=== PATIENT | female | born 1935 | race Caucasian/White ===

== ENCOUNTER 2016-12-19 18:42 | Inpatient (IN) | payer MEDICARE ==
[~2016-12-19] VITALS: Ht 157.4 cm; Wt 53.1 kg
[~2016-12-19 18:42] MED LIST: ACETAZOLAMIDE250 MG PO; B12,B-12,B 12500 MC1 PO; CALCIUM500 MG PO; CARDIZEM CD240 MG PO; COUMADIN3 M1 PO; COUMADIN4 M2 PO; Coumadin2 MG PO; FUROSEMIDE20 M1 PO; FUROSEMIDE40 MG PO; K-Dur 20MEQ20 MEQ PO; KLOR-CON M2020 ME1 PO; LACTINEX 0.2 MG1 TAB PO; LANOXIN0.125 MG PO; LASIX20 MG PO; LISINOPRIL10 M1 PO; LISINOPRIL10 MG PO; LOPRESSOR25 MG PO; LOPRESSOR50 M1 PO; LOPRESSOR50 MG PO; MAGNESIUM OXID400 MG PO; METOPROLOL SUCC50 M1 PO; METRONIDAZOLE500 MG PO; MICRO-K10 MEQ PO; MUCINEX600 MG PO; VITAMIN D5000 UNIT PO; XOPENEX0.63 MG NEB; ZITHROMAX250 MG PO; Zestril,Prinivil5 MG PO
[2016-12-19 18:53] VITALS: BP 162/81
[2016-12-19] MEDS ORDERED: ELIQUIS2.5 M1 PO (18:58)
[2016-12-19] MEDS ORDERED: LISINOPRIL5 MG PO (18:59)
[2016-12-19 19:23] LABS: BASO % 0.5 % (0.0-1.0); EOS # 0.1 10*3/uL (0.0-0.4); EOS % 1.7 % (1.0-4.0); HEMATOCRIT 40.6 % (37.0-47.0); HEMOGLOBIN 13.4 g/dl (12.0-16.0); LYMPH # 2.4 10*3/uL (1.3-4.4); MEAN PLATELET VOLUME 10.5 fl (9.6-12.3); MONO # 0.6 10*3/uL (0.1-1.0); NEUT # 3.2 10*3/uL (2.3-7.9); NEUT % 49.5 % (47.0-73.0); PLATELET COUNT AUTOMATED 210 10*3/uL (130-400); RED BLOOD COUNT 4.32 10*6/uL (4.10-5.10); WHITE BLOOD COUNT 6.4 10*3/uL (4.8-10.8)
[2016-12-19 19:40] LABS: ALKALINE PHOSPHATASE 106 U/L (45-117); BILIRUBIN, TOTAL 0.4 mg/dl (0.2-1.0); BUN 25 mg/dl (7-24); CARBON DIOXIDE 29 mmol/L (21-32); CHLORIDE 100 mmol/L (98-107); EST GLOM FILT AFRICAN AMERICAN > 60 ml/min; GLUCOSE 115 mg/dL (65-99); SGOT/AST 21 IU/L (3-35); SGPT/ALT 20 U/L (12-78); SODIUM 140 mmol/L (136-145); TOTAL PROTEIN 7.4 gm/dL (6.4-8.2)
[2016-12-19 20:59] VITALS: BP 166/92
[2016-12-20] VITALS: BP 158/69
[2016-12-20 00:44] LABS: CKMB 2.2 ng/ml (0.5-3.6); TROPONIN I 0.016 ng/ml (<0.045)
[2016-12-20 01:57] VITALS: BP 158/69
[2016-12-20 07:03] LABS: BASO % 0.6 % (0.0-1.0); EOS # 0.1 10*3/uL (0.0-0.4); EOS % 1.4 % (1.0-4.0); HEMATOCRIT 38.9 % (37.0-47.0); HEMOGLOBIN 12.6 g/dl (12.0-16.0); LYMPH # 1.8 10*3/uL (1.3-4.4); LYMPH % 28.6 % (27.0-41.0); MEAN CELL VOLUME 95.1 fl (81.0-99.0); MEAN CORPUSCULAR HGB 30.8 pg (27.0-31.0); MEAN CORPUSCULAR HGB CONC 32.4 g/dl (33.0-37.0); MEAN PLATELET VOLUME 10.5 fl (9.6-12.3); MONO # 0.7 10*3/uL (0.1-1.0); MONO % 11.3 % (3.0-9.0); NEUT # 3.7 10*3/uL (2.3-7.9); NEUT % 57.8 % (47.0-73.0); PLATELET COUNT AUTOMATED 193 10*3/uL (130-400); RED BLOOD COUNT 4.09 10*6/uL (4.10-5.10); RED CELL DISTRI WIDTH 12.9 % (0-14.5); WHITE BLOOD COUNT 6.4 10*3/uL (4.8-10.8)
[2016-12-20 07:34] LABS: PROTHROMBIN TIME 11.1 SECONDS (9.0-12.4)
[2016-12-20 07:35] LABS: ALBUMIN 3.7 gm/dl (3.1-4.5); BUN 19 mg/dl (7-24); CARBON DIOXIDE 28 mmol/L (21-32); CHLORIDE 105 mmol/L (98-107); GLUCOSE 84 mg/dL (65-99); MAGNESIUM 1.8 mg/dL (1.5-2.1); POTASSIUM 3.7 mmol/L (3.5-5.1); SODIUM 143 mmol/L (136-145)
[2016-12-20 07:43] LABS: ALKALINE PHOSPHATASE 95 U/L (45-117); BILIRUBIN, TOTAL 0.6 mg/dl (0.2-1.0); CHOLESTEROL 113 mg/dL (<200); EST GLOM FILT AFRICAN AMERICAN > 60 ml/min; HDL CHOLESTEROL 55 mg/dl (40-60); LDL CHOLESTEROL 47 mg/dL (9-159); PHOSPHOROUS 3.1 mg/dL (2.5-4.9); SGOT/AST 20 IU/L (3-35); SGPT/ALT 19 U/L (12-78); TRIGLYCERIDES 55 mg/dl (<150); VLDL CHOLESTEROL 11 mg/dL (6-40)
[2016-12-20 07:53] LABS: HEMOGLOBIN A1c 5.7 % (4.8-5.6)
[2016-12-20 08:00] VITALS: BP 141/83
[2016-12-20 08:28] LABS: VITAMIN D, 25-HYDROXY 46.7 ng/mL (30-100)
[2016-12-20 08:29] LABS: FOLIC ACID 19.29 ng/mL (>5.38)
[2016-12-20 12:00] VITALS: BP 138/68
== END 2016-12-20 14:43 | disposition home or self-care (01) | DRG 605 ==
LOC: ED 18:42 → EDHOLD 20:47 → 4E 21:26
PROVIDERS: Hospitalist; Registered Nurse
DX: S00.03XA Contusion of scalp, initial encounter (principal); I49.5 Sick sinus syndrome; I48.2 Chronic atrial fibrillation; I10 Essential (primary) hypertension; D64.9 Anemia, unspecified; E55.9 Vitamin D deficiency, unspecified; E53.8 Deficiency of other specified B group vitamins; I34.0 Nonrheumatic mitral (valve) insufficiency; W01.0XXA Fall on same level from slipping, tripping and stumbling without subsequent striking against object, initial encounter; Y93.89 Activity, other specified; Y92.89 Other specified places as the place of occurrence of the external cause; Y99.8 Other external cause status; Z88.6 Allergy status to analgesic agent; Z90.710 Acquired absence of both cervix and uterus; Z83.6 Family history of other diseases of the respiratory system

== ENCOUNTER → 2017-02-16 | Outpatient (CLI) | payer MEDICARE ==
[~2017-02-16] MED LIST changes: +ELIQUIS2.5 M1 PO; +LISINOPRIL5 MG PO
[2017-02-16 10:49] LABS: BASO # 0.1 10*3/uL (0.0-0.1); BASO % 0.7 % (0.0-1.0); EOS # 0.2 10*3/uL (0.0-0.4); EOS % 2.4 % (1.0-4.0); HEMATOCRIT 38.6 % (37.0-47.0); HEMOGLOBIN 12.5 g/dl (12.0-16.0); LYMPH # 2.1 10*3/uL (1.3-4.4); LYMPH % 29.8 % (27.0-41.0); MEAN CELL VOLUME 96.3 fl (81.0-99.0); MEAN CORPUSCULAR HGB 31.2 pg (27.0-31.0); MEAN CORPUSCULAR HGB CONC 32.4 g/dl (33.0-37.0); MEAN PLATELET VOLUME 10.6 fl (9.6-12.3); MONO # 0.7 10*3/uL (0.1-1.0); NEUT % 56.8 % (47.0-73.0); PLATELET COUNT AUTOMATED 207 10*3/uL (130-400); RED BLOOD COUNT 4.01 10*6/uL (4.10-5.10); RED CELL DISTRI WIDTH 13.4 % (0-14.5); WHITE BLOOD COUNT 7.1 10*3/uL (4.8-10.8)
[2017-02-16 11:20] LABS: ALBUMIN 3.8 gm/dl (3.1-4.5); ALKALINE PHOSPHATASE 114 U/L (45-117); BILIRUBIN, TOTAL 0.4 mg/dl (0.2-1.0); BUN 25 mg/dl (7-24); CARBON DIOXIDE 27 mmol/L (21-32); CHLORIDE 109 mmol/L (98-107); EST GLOM FILT AFRICAN AMERICAN > 60 ml/min; GLUCOSE 63 mg/dL (65-99); POTASSIUM 3.7 mmol/L (3.5-5.1); SGOT/AST 20 IU/L (3-35); SGPT/ALT 13 U/L (12-78); SODIUM 143 mmol/L (136-145); TOTAL PROTEIN 7.2 gm/dL (6.4-8.2)
== END | disposition home or self-care (01) ==
LOC: LAB 10:11
PROVIDERS: Internal Medicine
DX: I48.2 Chronic atrial fibrillation (principal)

== ENCOUNTER 2017-04-17 01:49 | Emergency (ER) | payer MEDICARE ==
[~2017-04-17] VITALS: Ht 154.9 cm; Wt 53.5 kg
[2017-04-17 02:15] LABS: BASO # 0.1 10*3/uL (0.0-0.1); BASO % 0.5 % (0.0-1.0); EOS # 0.2 10*3/uL (0.0-0.4); EOS % 1.1 % (1.0-4.0); HEMATOCRIT 38.3 % (37.0-47.0); HEMOGLOBIN 12.1 g/dl (12.0-16.0); IG # 0.1 10*3/uL (0.0-0.1); LYMPH # 4.6 10*3/uL (1.3-4.4); LYMPH % 32.1 % (27.0-41.0); MEAN CELL VOLUME 98.7 fl (81.0-99.0); MEAN CORPUSCULAR HGB 31.2 pg (27.0-31.0); MEAN CORPUSCULAR HGB CONC 31.6 g/dl (33.0-37.0); MEAN PLATELET VOLUME 10.6 fl (9.6-12.3); MONO # 0.8 10*3/uL (0.1-1.0); MONO % 5.6 % (3.0-9.0); NEUT # 8.5 10*3/uL (2.3-7.9); NEUT % 59.9 % (47.0-73.0); PLATELET COUNT AUTOMATED 216 10*3/uL (130-400); RED BLOOD COUNT 3.88 10*6/uL (4.10-5.10); RED CELL DISTRI WIDTH 13.4 % (0-14.5); WHITE BLOOD COUNT 14.2 10*3/uL (4.8-10.8)
[2017-04-17 02:26] LABS: INTERNATIONAL NORM RATIO 1.1 (2.0-3.5); PROTHROMBIN TIME 11.9 SECONDS (9.0-12.4)
[2017-04-17 02:32] LABS: ALBUMIN 3.5 gm/dl (3.1-4.5); ALKALINE PHOSPHATASE 106 U/L (45-117); BILIRUBIN, TOTAL 0.5 mg/dl (0.2-1.0); BUN 18 mg/dl (7-24); CARBON DIOXIDE 22 mmol/L (21-32); CHLORIDE 108 mmol/L (98-107); EST GLOM FILT AFRICAN AMERICAN > 60 ml/min; GLUCOSE 318 mg/dL (65-99); MAGNESIUM 1.8 mg/dL (1.5-2.1); POTASSIUM 3.8 mmol/L (3.5-5.1); SGOT/AST 92 IU/L (3-35); SGPT/ALT 53 U/L (12-78); SODIUM 143 mmol/L (136-145); TOTAL PROTEIN 6.8 gm/dL (6.4-8.2)
[2017-04-17 02:33] LABS: C-REACTIVE PROTEIN < 0.29 MG/DL (0-0.3)
[2017-04-17 02:34] LABS: TROPONIN I 0.129 ng/ml (<0.045)
[2017-04-17 02:55] VITALS: BP 106/81
[2017-04-17 04:12] LABS: LA>2 REFLEX 2 HR DRAW NOW
== END 2017-04-17 04:09 | disposition short-term general hospital (02) ==
LOC: ED 01:49
PROVIDERS: Student in an Organized Health Care Education/Training Program
DX: I21.3 ST elevation (STEMI) myocardial infarction of unspecified site (principal); I10 Essential (primary) hypertension; I48.91 Unspecified atrial fibrillation; Z88.6 Allergy status to analgesic agent

== ENCOUNTER 2017-04-19 21:58 | Inpatient (IN) | payer MEDICARE ==
[~2017-04-19] VITALS: Ht 154.9 cm; Wt 57.8 kg
[2017-04-19 21:58] VITALS: BP 124/64
[2017-04-19 22:10] VITALS: BP 128/62
[2017-04-19 22:40] VITALS: BP 105/65
[2017-04-19 22:57] LABS: BASO % 0.1 % (0.0-1.0); EOS % 0.1 % (1.0-4.0); HEMATOCRIT 33.7 % (37.0-47.0); HEMOGLOBIN 10.8 g/dl (12.0-16.0); IG # 0.1 10*3/uL (0.0-0.1); LYMPH # 1.3 10*3/uL (1.3-4.4); LYMPH % 10.9 % (27.0-41.0); MEAN CELL VOLUME 97.4 fl (81.0-99.0); MEAN CORPUSCULAR HGB 31.2 pg (27.0-31.0); MEAN PLATELET VOLUME 11.2 fl (9.6-12.3); MONO # 0.7 10*3/uL (0.1-1.0); MONO % 5.9 % (3.0-9.0); NEUT % 82.5 % (47.0-73.0); NUCLEATED RED BLOOD CELL 0.1 10*3/uL (0.0-0.0); NUCLEATED RED BLOOD CELL 0.8 % (0.0-0.0); PLATELET COUNT AUTOMATED 167 10*3/uL (130-400); RED BLOOD COUNT 3.46 10*6/uL (4.10-5.10); RED CELL DISTRI WIDTH 13.9 % (0-14.5); WHITE BLOOD COUNT 12.1 10*3/uL (4.8-10.8)
[2017-04-19 23:00] VITALS: BP 108/69
[2017-04-19 23:13] LABS: ALBUMIN 3.5 gm/dl (3.1-4.5); ALKALINE PHOSPHATASE 82 U/L (45-117); BILIRUBIN, TOTAL 0.4 mg/dl (0.2-1.0); BUN 56 mg/dl (7-24); CARBON DIOXIDE 25 mmol/L (21-32); CHLORIDE 107 mmol/L (98-107); EST GLOM FILT AFRICAN AMERICAN > 60 ml/min; GLUCOSE 144 mg/dL (65-99); SGOT/AST 67 IU/L (3-35); SGPT/ALT 107 U/L (12-78); SODIUM 143 mmol/L (136-145); TOTAL PROTEIN 6.9 gm/dL (6.4-8.2)
[2017-04-19 23:16] LABS: CKMB 5.6 ng/ml (0.5-3.6)
[2017-04-19 23:17] LABS: TROPONIN I 0.467 ng/ml (<0.045)
[2017-04-19 23:20] VITALS: BP 108/61
[2017-04-19 23:30] VITALS: BP 98/56
[2017-04-20] VITALS (8 sets, daily range): BP systolic 93–138; BP diastolic 60–96
[2017-04-20] MEDS ORDERED: ASPIR 8181 MG PO (02:08)
[2017-04-20] MEDS ORDERED: B-12 DOTS500 MCG PO (02:11)
[2017-04-20] MEDS ORDERED: COREG3.125 MG PO (02:12)
[2017-04-20] MEDS ORDERED: LISINOPRIL2.5 MG PO (02:13)
[2017-04-20] MEDS ORDERED: LASIX20 MG PO (02:13)
[2017-04-20 06:19] LABS: BASO % 0.1 % (0.0-1.0); EOS % 0.3 % (1.0-4.0); HEMATOCRIT 32.4 % (37.0-47.0); HEMOGLOBIN 10.3 g/dl (12.0-16.0); IG # 0.1 10*3/uL (0.0-0.1); LYMPH # 1.8 10*3/uL (1.3-4.4); LYMPH % 16.7 % (27.0-41.0); MEAN CELL VOLUME 97.6 fl (81.0-99.0); MEAN CORPUSCULAR HGB CONC 31.8 g/dl (33.0-37.0); MEAN PLATELET VOLUME 11.3 fl (9.6-12.3); MONO # 0.8 10*3/uL (0.1-1.0); MONO % 7.3 % (3.0-9.0); NEUT # 8.1 10*3/uL (2.3-7.9); NUCLEATED RED BLOOD CELL 0.1 10*3/uL (0.0-0.0); NUCLEATED RED BLOOD CELL 0.9 % (0.0-0.0); PLATELET COUNT AUTOMATED 181 10*3/uL (130-400); RED BLOOD COUNT 3.32 10*6/uL (4.10-5.10); RED CELL DISTRI WIDTH 13.8 % (0-14.5); WHITE BLOOD COUNT 10.8 10*3/uL (4.8-10.8)
[2017-04-20 06:32] LABS: CKMB 4.2 ng/ml (0.5-3.6)
[2017-04-20 06:42] LABS: BUN 53 mg/dl (7-24); CARBON DIOXIDE 23 mmol/L (21-32); CHLORIDE 109 mmol/L (98-107); CHOLESTEROL 88 mg/dL (<200); EST GLOM FILT AFRICAN AMERICAN > 60 ml/min; FREE T4 1.03 ng/dl (0.76-1.46); GLUCOSE 116 mg/dL (65-99); HDL CHOLESTEROL 32 mg/dl (40-60); LDL CHOLESTEROL 33 mg/dL (9-159); MAGNESIUM 1.9 mg/dL (1.5-2.1); POTASSIUM 3.9 mmol/L (3.5-5.1); SODIUM 142 mmol/L (136-145); TRIGLYCERIDES 114 mg/dl (<150); VLDL CHOLESTEROL 23 mg/dL (6-40)
[2017-04-20 06:56] LABS: INTERNATIONAL NORM RATIO 1.2 (2.0-3.5); PROTHROMBIN TIME 12.7 SECONDS (9.0-12.4)
[2017-04-20 07:13] LABS: FOLIC ACID > 24.00 ng/mL (>5.38)
[2017-04-20 07:36] LABS: BILIRUBIN NEGATIVE (NEGATIVE); BLOOD NEGATIVE (NEGATIVE); CLARITY CLEAR (CLEAR); COLOR YELLOW (YELLOW); GLUCOSE NEGATIVE (NEGATIVE); KETONE NEGATIVE (NEGATIVE); LEUKO ESTERASE NEGATIVE (NEGATIVE); NITRITE NEGATIVE (NEGATIVE); PH 5.5 (5.0-9.0); PROTEIN NEGATIVE (NEGATIVE); SPECIFIC GRAVITY 1.015 (1.005-1.030); UROBILINOGEN 0.2 E.U./dl (0.2-1.0)
[2017-04-20 07:44] LABS: BACTERIA TRACE; URINE REFLEX COMMENT NO (NO)
[2017-04-20 12:52] LABS: CKMB 4.7 ng/ml (0.5-3.6)
[2017-04-21] VITALS: BP 113/75
[2017-04-21 04:00] VITALS: BP 122/81
[2017-04-21 06:03] LABS: BUN 46 mg/dl (7-24); CARBON DIOXIDE 28 mmol/L (21-32); CHLORIDE 108 mmol/L (98-107); EST GLOM FILT AFRICAN AMERICAN > 60 ml/min; GLUCOSE 123 mg/dL (65-99); POTASSIUM 3.6 mmol/L (3.5-5.1); SODIUM 143 mmol/L (136-145)
[2017-04-21 06:34] LABS: HEMATOCRIT 31.3 % (37.0-47.0); HEMOGLOBIN 10.1 g/dl (12.0-16.0); MEAN CELL VOLUME 97.8 fl (81.0-99.0); MEAN CORPUSCULAR HGB 31.6 pg (27.0-31.0); MEAN CORPUSCULAR HGB CONC 32.3 g/dl (33.0-37.0); MEAN PLATELET VOLUME 11.5 fl (9.6-12.3); NUCLEATED RED BLOOD CELL 0.2 10*3/uL (0.0-0.0); NUCLEATED RED BLOOD CELL 1.8 % (0.0-0.0); PLATELET COUNT AUTOMATED 184 10*3/uL (130-400); RED CELL DISTRI WIDTH 13.9 % (0-14.5)
[2017-04-21 07:05] LABS: INTERNATIONAL NORM RATIO 1.2 (2.0-3.5); PROTHROMBIN TIME 13.2 SECONDS (9.0-12.4)
[2017-04-21 07:20] LABS: EOSINOPHIL # 0.2 10*3/uL (0-0.4); EOSINOPHILS 2 % (1-4); LYMPHOCYTE # 1.7 10*3/uL (1.3-4.4); MONOCYTE # 0.4 10*3/uL (0.1-1.0); NEUTROPHIL # 7.7 10*3/uL (2.3-7.9); NEUTROPHILS 77 % (47-73); TOTAL CELLS COUNTED 100 #CELLS
[2017-04-21 07:21] LABS: PLATELET SUFFICIENCY NORMAL (NORMAL)
[2017-04-21 08:00] VITALS: BP 109/69
[2017-04-21 12:00] VITALS: BP 130/84
[2017-04-21 16:00] VITALS: BP 117/85
[2017-04-21 20:00] VITALS: BP 121/79
[2017-04-22] VITALS: BP 92/67
[2017-04-22 04:00] VITALS: BP 103/59
[2017-04-22 06:43] LABS: HEMATOCRIT 32.6 % (37.0-47.0); HEMOGLOBIN 10.5 g/dl (12.0-16.0); MEAN CELL VOLUME 99.1 fl (81.0-99.0); MEAN CORPUSCULAR HGB 31.9 pg (27.0-31.0); MEAN CORPUSCULAR HGB CONC 32.2 g/dl (33.0-37.0); MEAN PLATELET VOLUME 11.3 fl (9.6-12.3); NUCLEATED RED BLOOD CELL 0.3 10*3/uL (0.0-0.0); NUCLEATED RED BLOOD CELL 3.2 % (0.0-0.0); PLATELET COUNT AUTOMATED 180 10*3/uL (130-400); RED BLOOD COUNT 3.29 10*6/uL (4.10-5.10); WHITE BLOOD COUNT 9.3 10*3/uL (4.8-10.8)
[2017-04-22 06:51] LABS: CARBON DIOXIDE 27 mmol/L (21-32); CHLORIDE 108 mmol/L (98-107); EST GLOM FILT AFRICAN AMERICAN > 60 ml/min; GLUCOSE 127 mg/dL (65-99); SODIUM 144 mmol/L (136-145)
[2017-04-22 06:52] LABS: BUN 36 mg/dl (7-24)
[2017-04-22 07:19] LABS: BASOPHIL # 0.1 10*3/uL (0-0.1); BASOPHILS 1 % (0-1); LYMPHOCYTE # 1.3 10*3/uL (1.3-4.4); MONOCYTE # 0.4 10*3/uL (0.1-1.0); NEUTROPHIL # 7.5 10*3/uL (2.3-7.9); NEUTROPHILS 81 % (47-73); POLYCHROMASIA SLIGHT; TOTAL CELLS COUNTED 100 #CELLS
[2017-04-22 07:20] LABS: PLATELET SUFFICIENCY NORMAL (NORMAL)
[2017-04-22 08:00] VITALS: BP 98/60
[2017-04-22 12:00] VITALS: BP 105/57
[2017-04-22 16:00] VITALS: BP 97/62
[2017-04-22 20:00] VITALS: BP 121/73; BP 121/83
[2017-04-23] VITALS: BP 115/67
[2017-04-23 06:28] LABS: HEMATOCRIT 32.8 % (37.0-47.0); HEMOGLOBIN 10.2 g/dl (12.0-16.0); MEAN CELL VOLUME 101.5 fl (81.0-99.0); MEAN CORPUSCULAR HGB 31.6 pg (27.0-31.0); MEAN CORPUSCULAR HGB CONC 31.1 g/dl (33.0-37.0); MEAN PLATELET VOLUME 11.2 fl (9.6-12.3); NUCLEATED RED BLOOD CELL 0.3 10*3/uL (0.0-0.0); NUCLEATED RED BLOOD CELL 3.4 % (0.0-0.0); PLATELET COUNT AUTOMATED 174 10*3/uL (130-400); RED BLOOD COUNT 3.23 10*6/uL (4.10-5.10); RED CELL DISTRI WIDTH 14.4 % (0-14.5); WHITE BLOOD COUNT 8.2 10*3/uL (4.8-10.8)
[2017-04-23 06:36] LABS: BUN 34 mg/dl (7-24); CARBON DIOXIDE 28 mmol/L (21-32); CHLORIDE 108 mmol/L (98-107); EST GLOM FILT AFRICAN AMERICAN > 60 ml/min; GLUCOSE 128 mg/dL (65-99); POTASSIUM 4.2 mmol/L (3.5-5.1); SODIUM 140 mmol/L (136-145)
[2017-04-23 07:19] LABS: BASOPHIL # 0.1 10*3/uL (0-0.1); BASOPHILS 1 % (0-1); LYMPHOCYTE # 2.1 10*3/uL (1.3-4.4); NEUTROPHIL # 5.1 10*3/uL (2.3-7.9); NEUTROPHILS 62 % (47-73); PLATELET SUFFICIENCY NORMAL (NORMAL); POLYCHROMASIA SLIGHT; TOTAL CELLS COUNTED 100 #CELLS
[2017-04-23 08:00] VITALS: BP 111/76
== END 2017-04-23 12:25 | disposition other institution (70) | DRG 314 ==
LOC: ED 21:58 → EDHOLD 04-20 00:33 → 4E 04-20 00:33 → ICCU 04-20 00:40 → 4E 04-21 06:26
PROVIDERS: Emergency Medicine Emergency Medical Services; Family Medicine; Internal Medicine
DX: I51.81 Takotsubo syndrome (principal); N17.0 Acute kidney failure with tubular necrosis; R65.11 Systemic inflammatory response syndrome (SIRS) of non-infectious origin with acute organ dysfunction; K92.1 Melena; D64.9 Anemia, unspecified; I48.2 Chronic atrial fibrillation; E87.8 Other disorders of electrolyte and fluid balance, not elsewhere classified; Z66 Do not resuscitate; Z51.5 Encounter for palliative care; I25.2 Old myocardial infarction; Z88.6 Allergy status to analgesic agent; Z90.710 Acquired absence of both cervix and uterus; Z83.6 Family history of other diseases of the respiratory system; Z79.82 Long term (current) use of aspirin; Z79.899 Other long term (current) drug therapy; I10 Essential (primary) hypertension

== ENCOUNTER → 2017-05-04 | Outpatient (CLI) | payer MEDICARE ==
[~2017-05-04] MED LIST changes: +ASPIR 8181 MG PO; +B-12 DOTS500 MCG PO; +COREG3.125 MG PO; +LISINOPRIL2.5 MG PO
== END | disposition home or self-care (01) ==
LOC: RAD 12:16
DX: I51.81 Takotsubo syndrome (principal); I48.91 Unspecified atrial fibrillation; J44.9 Chronic obstructive pulmonary disease, unspecified; J90 Pleural effusion, not elsewhere classified; I42.9 Cardiomyopathy, unspecified; I10 Essential (primary) hypertension

== ENCOUNTER 2017-05-12 08:10 | Inpatient (IN) | payer MEDICARE ==
[~2017-05-12] VITALS: Ht 154.9 cm; Wt 56.9 kg
[2017-05-12] VITALS (11 sets, daily range): BP systolic 88–134; BP diastolic 51–69
--- NOTE | ~2017-05-12 | PR ---
[place], [place] PROGRESS NOTE NAME: HECTOR BELL [facility] #: [id number] UNIT #: [id number] ROOM: [facility] DOCTOR: CHARITO MILLS MD BIRTHDATE: [birth year] DOS: 05/15/2017 REASON FOR VISIT: Atrial fibrillation and valvular heart disease. SUBJECTIVE: The patient is somewhat drowsy today, arousable, no acute distress. She did have some abdominal studies done today. She denies any chest pain or palpitations. Family is at bedside. REVIEW OF SYSTEMS: Review of the 8 systems negative except as mentioned above. Rhythm strip: The patient is in sinus rhythm. Rate is controlled. PHYSICAL EXAMINATION: VITAL SIGNS: Blood pressure 118/60, pulse 72, respiratory rate is 18. GENERAL: Alert, comfort, in no acute distress. HEAD AND NECK: Pupils round. No jaundice. Tongue is try. Neck is supple. No distended neck veins. No carotid bruits. CHEST: Symmetrical, nontender. LUNGS: A few scattered rhonchi, diminished at bases. HEART: Irregularly irregular and grade 2/6 systolic murmur, grade 1/6 mid diastolic murmur. No S3. No palpable thrills. ABDOMEN: Benign. Nontender. Bowel sounds normal. EXTREMITIES: No edema. Distal pulses are palpable. SKIN: Warm and dry. No cyanosis, no clubbing. The patient had multiple ecchymotic spot. RECTAL: Deferred. GENITOURINARY: Deferred. MEDICATIONS AND ALLERGIES: Reviewed. IMPRESSION: 1. Hypotension, resolved. Currently off Levophed and dobutamine. 2. Chronic atrial fibrillation on Eliquis. Dosage is per age and weight. 3. History of hypertension, currently stable. If the blood pressure gets high then we will resume her Coreg. 4. History of Takotsubo syndrome, recent echo showed normal LV function. 5. Anemia. 6. Urinary tract infection. RECOMMENDATIONS: 1. No further cardiac testing at this time. 2. Resume Coreg if needed for blood pressure and tachycardia. 3. The Cardiology will see as needed during the weekend. 4. Above treatment plan discussed with the patient's family who is at the bedside. 5. Diuretics as needed once she starts drinking adequate fluids orally. Currently, there are no signs of acute heart failure. [place], [place] PROGRESS NOTE NAME: HECTOR BELL UNIT #: [id number] ROOM: [facility] DOCTOR: CHARITO MILLS MD BIRTHDATE: [birth year] HCARITO MILLS MD CM:BETSY 1353 6 CHARITO MILLS MD 05/16/177 interface
--- NOTE | ~2017-05-12 | PR ---
[place], [place] PROGRESS NOTE NAME: HECTOR BELL UNIT #: [id number] ROOM: [facility] DOCTOR: RASTA SALGUERO MD BIRTHDATE: [birth year] DOS: 05/16/2017 SUBJECTIVE: She has been noted with hypothermia and was currently getting the hypothermia blanket. The patient has been noted with hypotension as well. Change in mental status noted. She was noted awake and alert. The code status has been modified, patient's medications only and still uses the BiPAP at this time. OBJECTIVE: VITAL SIGNS: For the patient which has been recorded shows normal temperature previously noted, current noted as temperature 95.1 degrees Fahrenheit rectal temperature, respiratory rate 13-21, heart rate 70-80, blood pressure 87/40-111/67. Pulse oxygen saturation with the BiPAP was 95 percent saturation, 30% oxygen. HEENT: Eyes was closed. NECK: Supple. CARDIOVASCULAR: S1, S2 audible. LUNGS: Decreased breath sounds in the lungs. ABDOMEN: Soft, nontender. LABORATORY DATA: Arterial blood gas today, pH of 7.33, pCO2 of 67, pO2 of 136, 30% oxygen. BiPAP use. CBC today: WBC count remains normal, hemoglobin 10.5, hematocrit 34.3, platelet count was normal. IMPRESSION: 1. Multiorgan system failure, has been in progress with low output state for this patient as well. 2. Hypercapnic and hypoxic respiratory failure as noted acutely. 3. Hypothermia, related to the low output state. PLAN OF TREATMENT: No changes in the plan and management at this time. I recommended the patient comfort care at this time because of the code status. The BiPAP will be discontinued if necessary and the oxygen supplement simply could be used to maintain the oxygen saturation more than 92%. [place], [place] PROGRESS NOTE NAME: HECTOR BELL UNIT #: [id number] ROOM: [facility] DOCTOR: RASTA SALGUERO MD BIRTHDATE: [birth year] RASTA ORDONEZ MD CM:PNTRANS [id number] RASTA CHUN MD 05/16/17 1347 interface
--- NOTE | ~2017-05-12 | CON ---
[place], [place] REPORT OF CONSULTATION NAME: HECTOR BELL [facility] #: [id number] UNIT #: [id number] ROOM: [facility] DOCTOR: JOSÉ LUIS CHUN MD,RASTA BIRTHDATE: [birth year] DOS: 05/13/2017 REASON FOR CONSULTATION: Consultation was obtained for consultation documentation. Some of it is contained from the review of the current medical records for this hospitalization by the other physician notes and the nursing notes. The patient unable to give any history, noted with significant lethargy and currently being treated for acute respiratory failure as well. HISTORY OF PRESENT ILLNESS: History which has been known for this patient during the admission, an 81-year-old female brought to the hospital noted with increased lethargy with symptoms of shortness of breath, but the shortness of breath of the patient has been noted gradually worse. The patient has been noted with increased sleepiness, difficulty to arouse. The patient was taking Ativan for the insomnia, took one dose of Ativan about 7 p.m. last night. The patient has been noted with confusional status as well. There was no history known for wheezing, coughing, shortness breath or otherwise. There was no history of chest pain, seizures, incontinence to urine or stool or other symptoms were described. The patient has been noted with abnormal electrocardiogram in March 2017 with possibility of acute myocardial infarction considered. She was taken to the cardiac catheterization lab at [facility], was noted with known coronary artery disease and Takotsubo cardiomyopathy was noted. Arterial blood gas, which was done shows severe acute hypercapnic and hypoxic respiratory failure. The patient was started on the BiPAP. The patient has been given the BiPAP for few hours with repeat arterial blood gases this morning during assessment. The patient was noted off the BiPAP for about 1 hour. She was noted with difficulty to arouse and could not give me any history. REVIEW OF SYSTEMS: Could not be completed because of the patient's change in mental status. PAST MEDICAL HISTORY: Known with, 1. History of Takotsubo cardiomyopathy. 2. Chronic atrial fibrillation. 3. History of past head injury. 4. Essential hypertension. 5. History of Clostridium difficile colitis. 6. Mitral valve stenosis, which was described as moderate in the history as well. 7. History of anxiety and depression. 8. Vitamin D deficiency. SOCIAL HISTORY: Noted as no tobacco use, alcohol use or illicit drug use reported. PAST SURGICAL HISTORY: Noted as, 1. Hysterectomy. 2. Cardiac catheterization in March 2017. No acute coronary intervention was necessary. [place], [place] REPORT OF CONSULTATION [id number] UNIT #: [id number] ROOM: [facility] DOCTOR: JOSÉ LUIS CHUN MD,RASTA BIRTHDATE: [birth year] FAMILY HISTORY: Reported as patient's father at the age of 88 to complication related to acute pneumonia. Mother at age 72, unknown medical problems. HOME MEDICATIONS: Reported as use of Eliquis 2.5 mg p.o. b.i.d., Coreg 3.125 mg p.o. b.i.d., vitamin D 4000 international units daily, Lasix 20 mg daily, lisinopril 2.5 mg daily, Klor-Con 8 mEq p.o. daily, Effexor XR 25 mg daily and Ativan 1 mg at bedtime. DRUG ALLERGIES: REPORTED ALLERGY TO CODEINE PHOSPHATE. PHYSICAL EXAMINATION: GENERAL: An 81-year-old female noted with difficulty to be aroused at this time lying on the bed comfortably without any acute distress. The patient's height was recorded by the nursing staff at the time of admission with height of 5 feet 1 inch, weight of 117 pounds, BMI 22.1. VITAL SIGNS: Reported as a normal temperature since admission, respiratory rate of the patient recorded as 26-18, heart rate of the patient ranged between 80 and 72 with atrial fibrillation, blood pressure was recorded 108/64-103/51. Intake 620, output was not documented at this time. The pulse oxygen saturation recorded on room air at 86% on admission and later on 4 liters at 100% with the BiPAP at 92% saturation, 30% oxygen. HEENT: Limited examination. Head was atraumatic. Eyes nonicterus. NECK: Supple. CARDIOVASCULAR: S1, S2 audible. LUNGS: Shows [id number]-sqntaira decreased breath sounds noted in the lungs bilaterally without any active wheezing or crackles heard at this time. LABORATORY DATA: The patient's CBC on admission 05/12/2017, WBC count normal, hemoglobin 11.3, hematocrit 38.7, platelet count was normal. BMP of the patient on 05/12/2017, glucose 145, BUN 32, creatinine 1.17. Sodium 149, CO2 of 33. Troponin 0.075. Arterial blood gas; pH of 7.17, pCO2 of 104, pO2 of 182 that was done on 100% nonrebreather on 3 L nasal cannula. Arterial blood gas does not correlate with 3 L nasal cannula of oxygen. Arterial blood gas with BiPAP settings of 12/6; pH of 7.35, pCO2 of 61, pO2 of 90.5 on 30% oxygen reported at 2:15 a.m. CBC this morning essentially remains the same. BMP of patient which was done this morning; BUN 36, creatinine 1.12, glucose 123, sodium 148, carbon dioxide 35. Arterial blood gas of the patient that I ordered again on 3 L nasal cannula; pH of 7.27, pCO2 of 73, pO2 70.8. The patient had a V/Q scan, which was also completed this morning noted low probability of pulmonary embolism. The chest x-ray of the patient that was done on admission was personally reviewed shows increased interstitial markings. The patient was noted without any gross aortopulmonary infiltration or pleural fluid. Prominent right hilar area effusion noted most likely due to rotational factors. The chest x-ray was rotated towards the right. IMPRESSION: 1. The patient who has been currently admitted to the hospital noted with severe acute hypercapnic respiratory failure and hypoxia with possibility of pulmonary venous congestion and congestive heart failure would be likely. [place], [place] REPORT OF CONSULTATION NAME: HECTOR BELL UNIT #: [id number] ROOM: [facility] DOCTOR: JOSÉ LUIS CHUN MD,[facility] BIRTHDATE: [birth year] 2. Mild elevation of creatinine with acute injury secondary to volume depletion, ____ pH to be better this morning. 3. History of Takotsubo cardiomyopathy. 4. History of previous mitral valve stenosis as well. PLAN OF MANAGEMENT: Conservative treatment at this time will be continued. Changes in the BiPAP for this patient has been made at this time to improve the ventilatory status, the BiPAP will be used most of the time. Confirm the code status from the family members. If the patient developed progressive respiratory failure with hypoxia, certainly she needs to be intubated and started on mechanical ventilation. If not, the BiPAP will be continued as part of the treatment for the medical management of hypercapnic respiratory failure. CT scan of the head does not show any acute pathology. Avoid any sedating agents including benzodiazepines or narcotics. Other supportive therapy, plan and management to be continued. Further treatment changes will be done based on progression of illness. Repeat arterial blood gases 3 hours after starting the patient on new changes in the BiPAP. Keep the patient n.p.o. to prevent aspiration because of change in mental status until it resolves. DVT prophylaxis. Thanks for allowing me to participate in the care of this patient. RASTA ORDONEZ MD CM:CONSTR:REPORT OF CONSULTATION 1225 05/14/17 0102 interface
--- NOTE | ~2017-05-12 | CON ---
[place], [place] REPORT OF CONSULTATION NAME: HECTOR BELL [facility] #: [id number] UNIT #: [id number] ROOM: [facility] DOCTOR: MATT KUMARI,COSTA BIRTHDATE: [birth year] DOS: 05/13/2017 REASON FOR CONSULTATION: Hypotension and atrial fibrillation and recent myocardial infarction. HISTORY OF PRESENT ILLNESS: The patient is 81 years. The patient was brought to the Emergency Room from the family due to shortness of breath and lethargy. She had history of "myocardial infarction", and the last echo was in March and underwent emergent cardiac catheterization that showed patent coronary arteries, and she was diagnosed with Takotsubo syndrome. Subsequently discharged home on appropriate medications, and she was readmitted to [facility] for CHF and seen by Dr. Jarett Posada. Subsequently, she was discharged to rehab and was at home for the last 10-12 days. She was seen by the primary care doctor on Thursday and given Ativan for sleeplessness and labs were drawn. Due to her low potassium, she came to the Emergency Room Thursday morning and given intravenous as well as p.o. potassium and subsequently discharged home. On Thursday evening, the patient noted to be more short of breath and slightly lethargic with low pulse oximetry, hence she was brought to the Emergency Room and was admitted to the hospital for respiratory failure. She was also hypotensive, and she was on dobutamine as well as Levophed for blood pressure support and Cardiology consult for further recommendation due to her recent severe LV dysfunction and chronic atrial fibrillation and also low blood pressure. History was obtained from the chart due to the patient's status. Currently, she was on BiPAP, slightly drowsy, but arousable and answering questions briefly. The family is also at bedside at the time of my examination. Apparently, there is no chest pain and I except this shortness of breath and mental status changes. No fever and chills. No cough. No nausea, vomiting, diarrhea. No headaches. No syncopal attacks recently. No PND, no orthopnea, no hematuria, no visual symptoms. No neurologic symptoms. She has been compliant with her medications. REVIEW OF SYSTEMS: Review of the 8 systems limited; however, unremarkable except as described above. PAST MEDICAL HISTORY: 1. Positive cardiac enzymes, cardiac catheterization showed normal coronary arteries and diagnosed with Takotsubo syndrome on 04/04/2017. 2. Severe LV dysfunction by cardiac catheterization in 03/2017. 3. Hypertension. 4. Chronic atrial fibrillation. 5. Valvular heart disease with mitral stenosis and tricuspid regurgitation. 6. Recent acute kidney failure. PAST SURGICAL HISTORY: History of hysterectomy, cardiac catheterization in 03/2017. SOCIAL HISTORY: The patient does not smoke or drink, does not use illicit drugs. FAMILY HISTORY: Nil contributory due to her age. Father at the age of 80. Mother at age 72. [place], [place] REPORT OF CONSULTATION NAME: HECTOR BELL UNIT #: [id number] ROOM: [facility] DOCTOR: MATT KUMARI,COSTA BIRTHDATE: [birth year] ALLERGIES: The patient is allergic to CODEINE, causes shortness of breath and hypertension. HOME MEDICATIONS: Reviewed. PHYSICAL EXAMINATION: VITAL SIGNS: Blood pressure at the time of my examination is 115/75, pulse 72, respiration rate is 18. GENERAL: The patient is slightly drowsy, but arousable on BiPAP. HEENT: Pupils are round and equal. Oral exam is unable to do due to BiPAP. NECK: Supple. The patient has elevated neck veins. No carotid bruits. Thyroid is not palpable. CHEST: Symmetrical, nontender. LUNGS: A few scattered rhonchi anteriorly and laterally and a few basal rales. HEART: Irregularly irregular. Grade 2/6 systolic murmur as well as grade 1/6 mid diastolic murmur. No palpable thrills. ABDOMEN: Benign, nontender. Bowel sounds normal. EXTREMITIES: Showed no edema. Distal pulses are palpable. SKIN: Warm and dry. No cyanosis, no clubbing. The patient had few ecchymotic spots over the upper extremities. NEUROLOGIC: The patient is alert. No focal neurologic deficit, but exam is incomplete due to the patient's mental status. RECTAL: Deferred. GENITOURINARY: Deferred. REVIEW OF THE DIAGNOSTIC TESTS: EKG shows sinus rhythm with atrial fibrillation with anterior and lateral T-wave inversion. The previous EKG from March showed some anterolateral ST elevation and another EKG from March showed atrial fibrillation with anterolateral T inversion. Her CBC, chemistry and labs reviewed. IMPRESSION: 1. Hypotension, currently stable on dobutamine and Levophed. We will try to wean off her inotropic and resume her home medications. She also positive dehydrated and continue IV fluids. 2. Severe LV dysfunction by cardiac catheterization in 03/2017. Currently, we will hold her Coreg, lisinopril and Lasix, and as the blood pressure tolerates, we will resume her medications. Repeat 2D echo for followup of her LV function. 3. Respiratory failure per Dr. Portillo. Currently on BiPAP, currently oxygen status is stable. 4. Valvular heart disease with moderate mitral stenosis and tricuspid regurgitation by echo in 11/2016. We will repeat echo for followup of her valvular disease. 5. Chronic atrial fibrillation, rate is controlled on Eliquis, dose adjusted for her age and renal function. 6. Altered mental status, possibly due to hypercarbia. Currently, the patient is alert. CT showed no acute intracranial bleed and VQ scan low probable for pulmonary emboli. 7. Chronic kidney disease. Monitor renal function. [place], [place] REPORT OF CONSULTATION NAME: HECTOR BELL Kristy UNIT #: [id number] ROOM: [facility] DOCTOR: COSTA GUTIERREZ MD BIRTHDATE: [birth year] 8. Borderline elevation of troponin due to her chronic kidney disease and also hypoxia and hypotension. The patient is chest pain free. 10. History of hypertension. RECOMMENDATIONS: The above treatment plan was discussed with the patient's family, daughter who is at the bedside and all questions were answered. Just conservative medical therapy at this time, and the plan is to get wean off the inotropic support and resume her home cardiac medications and check 2D echo for LV function and valvular function. Thank you, Dr. Steel, for asking us to evaluate this patient. We will follow the case along with you. COSTA GUTIERREZ MD CM:CONSTR:REPORT OF CONSULTATION 1416 05/14/17 0608 interface
--- NOTE | ~2017-05-12 | PR ---
[place], [place] PROGRESS NOTE NAME: HECTOR BELL UNIT #: [id number] ROOM: [facility] DOCTOR: JOSÉ LUIS CHUN MD,RASTA BIRTHDATE: [birth year] DOS: 05/14/2017 SUBJECTIVE: She has been noted much more awake and alert this morning. She has used the BiPAP, which has been ordered and was used for the patient as recommended. This morning, the patient is using oxygen supplementation nasal cannula, taken off the BiPAP earlier. She has not been noted any symptoms of chest pain. Denies symptoms of coughing or any sputum expectoration. OBJECTIVE: VITAL SIGNS: Normal temperature, respiratory rate 14, heart rate 89, blood pressure 132/65. The pulse oxygen saturation noted on 3 L nasal cannula 100% saturation. HEENT: Examination shows no acute change. NECK: Supple. CARDIOVASCULAR: S1, S2 is audible. LUNGS: The patient was noted without any wheezing or crackles. Breaths are noted mild to moderately decreased bilaterally. ABDOMEN: Soft and nontender. LABORATORY DATA: The echocardiogram that was done yesterday was reported by the Cardiology Services as left ventricular ejection fraction noted 55%, stage 2 diastolic dysfunction. In addition, it shows evidence of pulmonary hypertension with [id number] mitral valve stenosis. IMPRESSION: 1. The patient has been currently noted with severe acute hypercapnic and hypoxic respiratory failure. Etiology remains poorly understood. All the workup done so far noted nonrevealing to show the underlying abnormality causing the hypercapnia. The TSH level was also noted as normal. 2. Mild anemia as well. 3. Pulmonary hypertension related to mitral valve stenosis would be considered for the most likely cause. PLAN OF TREATMENT: Continue to use BiPAP, but it would be used intermittently during the daytime, 2 hours on and 2 hours off and continuous at nighttime. CT scan of the chest will be ordered with intravenous contrast to rule out any additional pulmonary problems including assessment of possibility of any emphysema or other changes which could be causing the hypercapnia in this patient. All other supportive plan of therapy and care, plan of management. Central hypoventilation could be considered as a part of the assessment as well. [place], [place] PROGRESS NOTE NAME: HECTOR BELL UNIT #: [id number] ROOM: [facility] DOCTOR: RASTA SALGUERO MD BIRTHDATE: [birth year] RASTA ORDONEZ MD CM:PNTRANS 1157 1321 RASTA CHUN MD 05/14/17 1321 interface
--- NOTE | ~2017-05-12 | PR ---
[place], [place] PROGRESS NOTE NAME: HECTOR BELL [facility] #: [id number] UNIT #: [id number] ROOM: [facility] DOCTOR: MATT KUMARI,COSTA BIRTHDATE: [birth year] DOS: 05/14/2017 REASON FOR VISIT: Atrial fibrillation and hypotension. HISTORY OF PRESENT ILLNESS: The patient is more alert today, still using BiPAP. No acute distress. Denies any chest pain or shortness of breath. No dizziness. Family is at bedside. RHYTHM STRIPS: The patient in atrial fibrillation with controlled ventricular rate. PHYSICAL EXAMINATION: VITAL SIGNS: Blood pressure 119/68, pulse 86, respiratory rate 18. GENERAL: Alert, comfortable, in no acute distress. The patient is on BiPAP. HEENT: Pupils are round and equal. NECK: Supple, no distended veins. The patient has elevated JVD. No carotid bruit. CHEST: Symmetrical, nontender. LUNGS: Few scattered rhonchi. Good air entry bilaterally. HEART: Irregularly irregular, grade 2/6 systolic murmur as well as grade 1/6 mid diastolic murmur. No palpable thrills. ABDOMEN: Benign, nontender. Bowel sounds normal. EXTREMITIES: Showed no edema. Distal pulses are palpable. SKIN: Warm and dry. No cyanosis, no clubbing. NEUROLOGIC: The patient is alert, oriented. No focal neurologic deficit. RECTAL: Deferred. GENITOURINARY: Deferred. MEDICATIONS, ALLERGIES AND RHYTHM STRIPS: Reviewed. IMPRESSION: 1. Hypotension, improving, been off her Levophed today as well as Dobutrex as her blood pressure tolerates. Once the blood pressures are stable, consider resuming low dose diuretics tomorrow. 2. History of severe LV dysfunction, repeat echo showed EF of 55%, suggesting that her Takotsubo syndrome has resolved, so I see no reason for her Coreg and lisinopril at this time. 3. Valvular heart disease with moderate mitral stenosis and tricuspid regurgitation. 4. Moderate pulmonary hypertension. 5. Acute renal failure, resolved. 6. Anemia. 7. Respiratory failure, on BiPAP. 8. Chronic atrial fibrillation, rate control, on low dose Eliquis, adjusted per her age and weight. RECOMMENDATIONS: 1. She is going for chest CTA to rule out pulmonary emboli. 2. From cardiac plaza, the plan is to wean off her inotropic therapy and resume her diuretics as needed. [place], [place] PROGRESS NOTE NAME: HECTOR BELL [facility] #: [id number] UNIT #: [id number] ROOM: [facility] DOCTOR: MATT KUMARI,COSTA BIRTHDATE: [birth year] 3. The echo findings are discussed with the patient and her family members and all questions were answered. 4. No further cardiac testing at this time. COSTA GUTIERREZ MD CM:BETSY 1135 0044 COSTA GUTIERREZ MD 05/15/17 0044 interface
--- NOTE | ~2017-05-12 | PR ---
[place], [place] PROGRESS NOTE NAME: [facility] #: [id number] UNIT #: [id number] ROOM: [facility] DOCTOR: JOSÉ LUIS CHUN MD,RASTA BIRTHDATE: [birth year] DOS: 05/15/2017 SUBJECTIVE: She was still noted with fatigue and tiredness. Noted with some abdominal distention, but there was no pain. She has noted small amount of stool passed as per nursing staff which has been sent for stool for C. diff colitis. The patient has not been noted any symptoms of acute shortness of breath at rest. There was no chest pain noted. There were no symptoms of cough. OBJECTIVE: VITAL SIGNS: Recorded showed the temperature noted 101.2 degrees Fahrenheit to normal temperature, respiratory rate 18-22, heart rate 82-70, and blood pressure 122/60-116/64. Pulse oxygen saturation was recorded on the BiPAP as 98% and with nasal cannula this morning was 100% saturation. HEENT: Showed no new change. NECK: Supple. CARDIOVASCULAR: S1, S2 audible. LUNGS: Noted decreased breath sounds in the lungs bilaterally. ABDOMEN: Soft, noted with moderate distention. Hypoactive bowel sounds. EXTREMITIES: Show no edema, clubbing, or cyanosis. LABORATORY DATA: The patient's urine culture noted with greater than 100,000 colony-forming units of E. coli. BMP this morning noted glucose 129, BUN 26, creatinine normal, and CO2 of ____. CBC this morning: WBC count was normal, hemoglobin 10.5, hematocrit 34.5, and platelet count 148,000. CT scan with contrast of the chest that I ordered was completed by the primary care attending yesterday afternoon. It has been reviewed and it shows evidence of bilateral pleural fluid and area of basilar atelectasis. Cardiomegaly was also noted. There was no evidence of pulmonary embolism. There were no abnormal pulmonary nodules visible. IMPRESSION: 1. The patient who has been currently noted persistent acute hypercapnic-hypoxic respiratory failure. 2. Possibility of congestive heart failure, persistent bilateral pleural fluid as well. The patient has been already managed by the Cardiology services for that. There was no evidence of pneumonia. 3. Abdominal distention, exact etiology remains unclear. 4. Diastolic dysfunction. 5. Debility, remains persistent. 6. Urinary tract infection being treated with Rocephin. PLAN OF MANAGEMENT: Diuresis with close monitoring of BUN and creatinine and electrolytes will be recommended. Continuation of the bronchodilators. Other supportive plan of therapy and care. Usual treatment. Continue use of the BiPAP for acute hypercapnic-hypoxic respiratory failure management. Intermittent use of oxygen. Stool for C. diff toxins have been sent. Further treatment changes continue to be done based on progression of the illness. If pleural fluid remains persistent and does not respond to current conservative therapy or significant compromise of the kidney function, thoracentesis could be [place], [place] PROGRESS NOTE NAME: [facility] UNIT #: [id number] ROOM: [facility] DOCTOR: JOSÉ LUIS CHUN MD,RASTA BIRTHDATE: [birth year] done at the bedside. Ultrasound assessment. RASTA ORDONEZ MD CM:PNTRANS [id number] RASTA CHUN MD 05/15/17 1310 interface
[2017-05-12 08:44] LABS: BASO % 0.3 % (0.0-1.0); EOS % 0.3 % (1.0-4.0); HEMATOCRIT 39.7 % (37.0-47.0); LYMPH # 1.3 10*3/uL (1.3-4.4); LYMPH % 17.2 % (27.0-41.0); MEAN CELL VOLUME 103.7 fl (81.0-99.0); MEAN CORPUSCULAR HGB 31.3 pg (27.0-31.0); MEAN CORPUSCULAR HGB CONC 30.2 g/dl (33.0-37.0); MEAN PLATELET VOLUME 10.7 fl (9.6-12.3); MONO # 0.6 10*3/uL (0.1-1.0); MONO % 7.4 % (3.0-9.0); NEUT # 5.6 10*3/uL (2.3-7.9); NEUT % 74.3 % (47.0-73.0); PLATELET COUNT AUTOMATED 181 10*3/uL (130-400); RED BLOOD COUNT 3.83 10*6/uL (4.10-5.10); RED CELL DISTRI WIDTH 16.1 % (0-14.5); WHITE BLOOD COUNT 7.5 10*3/uL (4.8-10.8)
[2017-05-12 09:00] LABS: ALBUMIN 3.6 gm/dl (3.1-4.5); ALKALINE PHOSPHATASE 82 U/L (45-117); BILIRUBIN, TOTAL 0.6 mg/dl (0.2-1.0); BUN 31 mg/dl (7-24); CARBON DIOXIDE 36 mmol/L (21-32); CHLORIDE 105 mmol/L (98-107); EST GLOM FILT AFRICAN AMERICAN > 60 ml/min; GLUCOSE 166 mg/dL (65-99); IRON 56 ug/dL (50-170); IRON SATURATION 19 %; MAGNESIUM 1.4 mg/dL (1.5-2.1); POTASSIUM 2.7 mmol/L (3.5-5.1); SGOT/AST 26 IU/L (3-35); SGPT/ALT 42 U/L (12-78); SODIUM 148 mmol/L (136-145); TOTAL PROTEIN 6.4 gm/dL (6.4-8.2); UIBC 238 ug/dL (110-365)
[2017-05-12 09:23] LABS: BILIRUBIN NEGATIVE (NEGATIVE); BLOOD NEGATIVE (NEGATIVE); CLARITY SL CLOUDY (CLEAR); COLOR YELLOW (YELLOW); GLUCOSE NEGATIVE (NEGATIVE); KETONE NEGATIVE (NEGATIVE); LEUKO ESTERASE NEGATIVE (NEGATIVE); NITRITE NEGATIVE (NEGATIVE); PH 5.5 (5.0-9.0); PROTEIN 1+ (NEGATIVE)
[2017-05-12 09:29] LABS: BACTERIA TRACE; EPITHELIAL CELLS 0-2; RBC 0-2 rbc/hpf (0-2)
[2017-05-12 09:30] LABS: URINE REFLEX COMMENT NO (NO)
[2017-05-12] MEDS ORDERED: KLOR-CON 88 ME1 PO (14:19)
[2017-05-12 17:27] LABS: FOLIC ACID > 24.00 ng/mL (>5.38)
[2017-05-12 21:11] LABS: BASO % 0.1 % (0.0-1.0); EOS % 0.4 % (1.0-4.0); HEMATOCRIT 38.7 % (37.0-47.0); HEMOGLOBIN 11.3 g/dl (12.0-16.0); IG # 0.1 10*3/uL (0.0-0.1); LYMPH # 1.5 10*3/uL (1.3-4.4); LYMPH % 18.4 % (27.0-41.0); MEAN CELL VOLUME 105.2 fl (81.0-99.0); MEAN CORPUSCULAR HGB 30.7 pg (27.0-31.0); MEAN CORPUSCULAR HGB CONC 29.2 g/dl (33.0-37.0); MEAN PLATELET VOLUME 10.7 fl (9.6-12.3); MONO # 0.7 10*3/uL (0.1-1.0); MONO % 8.6 % (3.0-9.0); NEUT # 5.7 10*3/uL (2.3-7.9); NEUT % 71.9 % (47.0-73.0); NUCLEATED RED BLOOD CELL 0.3 % (0.0-0.0); PLATELET COUNT AUTOMATED 194 10*3/uL (130-400); RED BLOOD COUNT 3.68 10*6/uL (4.10-5.10); RED CELL DISTRI WIDTH 16.4 % (0-14.5); WHITE BLOOD COUNT 7.9 10*3/uL (4.8-10.8)
[2017-05-12 21:30] LABS: MAGNESIUM 1.9 mg/dL (1.5-2.1); POTASSIUM 3.7 mmol/L (3.5-5.1)
[2017-05-12 21:32] LABS: TROPONIN I 0.075 ng/ml (<0.045)
[2017-05-12 23:24] LABS: ABG BASE EXCESS 5.5 mmol/L (-2.0-2.0); ABG CO2 CONTENT 39.9 mmol/L (23-27); ABG HCO3 36.7 mmol/l (22-26); ABG TEMPERATURE 98.1 F (98.0-99.0)
[2017-05-12 23:27] LABS: ARTERIAL BLOOD GAS PH 7.173 (7.35-7.45)
[2017-05-13] VITALS (86 sets, daily range): BP systolic 77–131; BP diastolic 40–91
[2017-05-13] MEDS ORDERED: VITAMIN D34000 UNIT PO (00:48)
[2017-05-13] MEDS ORDERED: EFFEXOR XR37.5 M1 PO (00:49)
[2017-05-13 02:24] LABS: ABG BASE EXCESS 6.5 mmol/L (-2.0-2.0); ABG CO2 CONTENT 35.4 mmol/L (23-27); ABG HCO3 33.5 mmol/l (22-26); ABG TEMPERATURE 97.6 F (98.0-99.0); ARTERIAL BLOOD GAS PH 7.354 (7.35-7.45); ARTERIAL BLOOD GAS PO2 90.5 mmHg (80-90)
[2017-05-13 06:00] LABS: FREE T4 0.9 ng/dl (0.76-1.46); POTASSIUM 3.7 mmol/L (3.5-5.1)
[2017-05-13 06:06] LABS: BASO % 0.3 % (0.0-1.0); EOS # 0.1 10*3/uL (0.0-0.4); HEMATOCRIT 37.9 % (37.0-47.0); HEMOGLOBIN 11.2 g/dl (12.0-16.0); IG # 0.1 10*3/uL (0.0-0.1); LYMPH # 1.7 10*3/uL (1.3-4.4); LYMPH % 18.8 % (27.0-41.0); MEAN CELL VOLUME 105.6 fl (81.0-99.0); MEAN CORPUSCULAR HGB 31.2 pg (27.0-31.0); MEAN CORPUSCULAR HGB CONC 29.6 g/dl (33.0-37.0); MONO % 11.1 % (3.0-9.0); NEUT # 6.2 10*3/uL (2.3-7.9); NEUT % 68.1 % (47.0-73.0); NUCLEATED RED BLOOD CELL 0.2 % (0.0-0.0); PLATELET COUNT AUTOMATED 171 10*3/uL (130-400); RED BLOOD COUNT 3.59 10*6/uL (4.10-5.10); RED CELL DISTRI WIDTH 16.2 % (0-14.5); THYROID STIM HORMONE (HS) 3.02 uIU/ml (0.358-4.75); WHITE BLOOD COUNT 9.1 10*3/uL (4.8-10.8)
[2017-05-13 06:27] LABS: INTERNATIONAL NORM RATIO 1.2 (2.0-3.5); PROTHROMBIN TIME 12.7 SECONDS (9.0-12.4)
[2017-05-13] MEDS ORDERED: VENLAFAXINE HCL25 MG PO ×2 (07:16→07:35)
[2017-05-13] MEDS ORDERED: MIRTAZAPINE15 M2 PO (07:16)
[2017-05-13 09:26] LABS: ABG BASE EXCESS 4.6 mmol/L (-2.0-2.0); ABG CO2 CONTENT 35.3 mmol/L (23-27); ABG TEMPERATURE 97.4 F (98.0-99.0); ARTERIAL BLOOD GAS PH 7.273 (7.35-7.45); ARTERIAL BLOOD GAS PO2 70.8 mmHg (80-90)
[2017-05-13 11:29] LABS: BILIRUBIN 1+ (NEGATIVE); BLOOD NEGATIVE (NEGATIVE); CLARITY SL CLOUDY (CLEAR); COLOR YELLOW (YELLOW); GLUCOSE NEGATIVE (NEGATIVE); KETONE TRACE (NEGATIVE); LEUKO ESTERASE TRACE (NEGATIVE); NITRITE NEGATIVE (NEGATIVE); PROTEIN 2+ (NEGATIVE); SPECIFIC GRAVITY 1.025 (1.005-1.030)
[2017-05-13 11:48] LABS: BACTERIA 2+; EPITHELIAL CELLS 0-2
[2017-05-13 11:49] LABS: URINE REFLEX COMMENT YES (NO)
[2017-05-13 12:18] LABS: ABG BASE EXCESS 3.8 mmol/L (-2.0-2.0); ABG CO2 CONTENT 34.6 mmol/L (23-27); ABG HCO3 32.3 mmol/l (22-26); ARTERIAL BLOOD GAS PH 7.269 (7.35-7.45)
[2017-05-13 14:12] LABS: URINE AMPHETAMINES < 1000 (1000ng/ml); URINE BARBITURATES < 200 (200ng/ml); URINE COCAINE < 300 (300ng/ml)
[2017-05-13 18:12] LABS: ABG BASE EXCESS 4.1 mmol/L (-2.0-2.0); ABG CO2 CONTENT 34.4 mmol/L (23-27); ABG HCO3 32.2 mmol/l (22-26); ABG TEMPERATURE 97.8 F (98.0-99.0); ARTERIAL BLOOD GAS PH 7.28 (7.35-7.45)
[2017-05-14] VITALS (60 sets, daily range): BP systolic 89–136; BP diastolic 43–80
[2017-05-14 06:19] LABS: ALBUMIN 2.7 gm/dl (3.1-4.5); ALKALINE PHOSPHATASE 77 U/L (45-117); BILIRUBIN, TOTAL 0.7 mg/dl (0.2-1.0); BUN 27 mg/dl (7-24); CARBON DIOXIDE 32 mmol/L (21-32); CHLORIDE 104 mmol/L (98-107); EST GLOM FILT AFRICAN AMERICAN > 60 ml/min; GLUCOSE 91 mg/dL (65-99); POTASSIUM 3.5 mmol/L (3.5-5.1); SGOT/AST 17 IU/L (3-35); SGPT/ALT 33 U/L (12-78); SODIUM 141 mmol/L (136-145); TOTAL PROTEIN 5.4 gm/dL (6.4-8.2)
[2017-05-14 06:30] LABS: BASO % 0.2 % (0.0-1.0); EOS # 0.1 10*3/uL (0.0-0.4); EOS % 1.2 % (1.0-4.0); HEMATOCRIT 36.3 % (37.0-47.0); HEMOGLOBIN 10.9 g/dl (12.0-16.0); LYMPH # 1.6 10*3/uL (1.3-4.4); LYMPH % 19.5 % (27.0-41.0); MEAN CELL VOLUME 105.2 fl (81.0-99.0); MEAN CORPUSCULAR HGB 31.6 pg (27.0-31.0); MEAN PLATELET VOLUME 10.7 fl (9.6-12.3); MONO % 11.5 % (3.0-9.0); NEUT # 5.6 10*3/uL (2.3-7.9); NEUT % 67.1 % (47.0-73.0); PLATELET COUNT AUTOMATED 140 10*3/uL (130-400); RED BLOOD COUNT 3.45 10*6/uL (4.10-5.10); RED CELL DISTRI WIDTH 15.8 % (0-14.5); WHITE BLOOD COUNT 8.4 10*3/uL (4.8-10.8)
[2017-05-14 09:46] LABS: ABG BASE EXCESS 4.8 mmol/L (-2.0-2.0); ABG CO2 CONTENT 34.5 mmol/L (23-27); ABG HCO3 32.4 mmol/l (22-26); ABG TEMPERATURE 97.8 F (98.0-99.0); ARTERIAL BLOOD GAS PH 7.302 (7.35-7.45)
[2017-05-15] VITALS: BP 116/64
[2017-05-15 04:00] VITALS: BP 122/68
[2017-05-15 05:53] LABS: BASO % 0.1 % (0.0-1.0); EOS # 0.1 10*3/uL (0.0-0.4); EOS % 0.6 % (1.0-4.0); HEMATOCRIT 34.5 % (37.0-47.0); HEMOGLOBIN 10.5 g/dl (12.0-16.0); LYMPH # 1.2 10*3/uL (1.3-4.4); LYMPH % 15.2 % (27.0-41.0); MEAN CELL VOLUME 104.9 fl (81.0-99.0); MEAN CORPUSCULAR HGB 31.9 pg (27.0-31.0); MEAN CORPUSCULAR HGB CONC 30.4 g/dl (33.0-37.0); MEAN PLATELET VOLUME 10.7 fl (9.6-12.3); MONO # 1.1 10*3/uL (0.1-1.0); MONO % 13.4 % (3.0-9.0); NEUT # 5.5 10*3/uL (2.3-7.9); NEUT % 70.3 % (47.0-73.0); PLATELET COUNT AUTOMATED 148 10*3/uL (130-400); RED BLOOD COUNT 3.29 10*6/uL (4.10-5.10); RED CELL DISTRI WIDTH 15.6 % (0-14.5); WHITE BLOOD COUNT 7.9 10*3/uL (4.8-10.8)
[2017-05-15 06:00] LABS: BUN 26 mg/dl (7-24); CARBON DIOXIDE 35 mmol/L (21-32); CHLORIDE 105 mmol/L (98-107); EST GLOM FILT AFRICAN AMERICAN > 60 ml/min; GLUCOSE 129 mg/dL (65-99); POTASSIUM 3.7 mmol/L (3.5-5.1); SODIUM 143 mmol/L (136-145)
[2017-05-15 08:00] VITALS: BP 118/60
[2017-05-15 12:00] VITALS: BP 111/69
[2017-05-15 16:00] VITALS: BP 120/59
[2017-05-15 20:00] VITALS: BP 116/61
[2017-05-16] VITALS: BP 94/47
[2017-05-16 04:00] VITALS: BP 100/52
[2017-05-16 06:12] LABS: BASO % 0.2 % (0.0-1.0); EOS # 0.1 10*3/uL (0.0-0.4); EOS % 1.5 % (1.0-4.0); HEMATOCRIT 34.3 % (37.0-47.0); HEMOGLOBIN 10.5 g/dl (12.0-16.0); LYMPH # 1.1 10*3/uL (1.3-4.4); LYMPH % 18.6 % (27.0-41.0); MEAN CELL VOLUME 104.9 fl (81.0-99.0); MEAN CORPUSCULAR HGB 32.1 pg (27.0-31.0); MEAN CORPUSCULAR HGB CONC 30.6 g/dl (33.0-37.0); MEAN PLATELET VOLUME 10.6 fl (9.6-12.3); MONO # 0.8 10*3/uL (0.1-1.0); MONO % 12.7 % (3.0-9.0); NEUT % 66.7 % (47.0-73.0); PLATELET COUNT AUTOMATED 146 10*3/uL (130-400); RED BLOOD COUNT 3.27 10*6/uL (4.10-5.10); RED CELL DISTRI WIDTH 15.4 % (0-14.5); WHITE BLOOD COUNT 6.1 10*3/uL (4.8-10.8)
[2017-05-16 06:28] LABS: ABG BASE EXCESS 7.7 mmol/L (-2.0-2.0); ABG CO2 CONTENT 37.3 mmol/L (23-27); ABG HCO3 35.2 mmol/l (22-26); ABG TEMPERATURE 97.7 F (98.0-99.0); ARTERIAL BLOOD GAS PH 7.332 (7.35-7.45)
[2017-05-16 06:46] LABS: BUN 26 mg/dl (7-24); CARBON DIOXIDE 37 mmol/L (21-32); CHLORIDE 105 mmol/L (98-107); EST GLOM FILT AFRICAN AMERICAN > 60 ml/min; GLUCOSE 89 mg/dL (65-99); MAGNESIUM 1.9 mg/dL (1.5-2.1); PHOSPHOROUS 2.6 mg/dL (2.5-4.9); SODIUM 143 mmol/L (136-145)
[2017-05-16 08:00] VITALS: BP 111/67
[2017-05-16 11:30] VITALS: BP 87/54
[2017-05-16 13:37] VITALS: BP 85/51
[2017-05-16 16:00] VITALS: BP 73/48
== END 2017-05-17 03:29 | disposition expired | DRG 189 ==
LOC: ED 08:10 → EDHOLD 22:03 → ICCU 22:03 → 4E 05-16 15:46
PROVIDERS: Emergency Medicine; Emergency Medicine Emergency Medical Services; Family Medicine; Internal Medicine; Internal Medicine Critical Care Medicine; Internal Medicine Hospice and Palliative Medicine
PROC: 02HV33Z Insertion of Infusion Device into Superior Vena Cava, Percutaneous Approach (ICD-10-PCS; principal; 2017-05-13)
PROC: 5A09457 Assistance with Respiratory Ventilation, 24-96 Consecutive Hours, Continuous Positive Airway Pressure (ICD-10-PCS; principal; 2017-05-13)
DX: J96.02 Acute respiratory failure with hypercapnia (principal); N17.0 Acute kidney failure with tubular necrosis; G93.41 Metabolic encephalopathy; E87.0 Hyperosmolality and hypernatremia; T68.XXXA Hypothermia, initial encounter; E87.4 Mixed disorder of acid-base balance; I95.9 Hypotension, unspecified; E87.8 Other disorders of electrolyte and fluid balance, not elsewhere classified; I27.2 Other secondary pulmonary hypertension; N39.0 Urinary tract infection, site not specified; J96.01 Acute respiratory failure with hypoxia; N18.3 Chronic kidney disease, stage 3 (moderate); Z66 Do not resuscitate; Z51.5 Encounter for palliative care; I48.2 Chronic atrial fibrillation; I13.10 Hypertensive heart and chronic kidney disease without heart failure, with stage 1 through stage 4 chronic kidney disease, or unspecified chronic kidney disease; E86.0 Dehydration; E87.6 Hypokalemia; E83.42 Hypomagnesemia; D53.9 Nutritional anemia, unspecified; E83.51 Hypocalcemia; I08.1 Rheumatic disorders of both mitral and tricuspid valves; R14.0 Abdominal distension (gaseous); R80.9 Proteinuria, unspecified; B96.20 Unspecified Escherichia coli [E. coli] as the cause of diseases classified elsewhere; K80.20 Calculus of gallbladder without cholecystitis without obstruction; I25.2 Old myocardial infarction; Z90.710 Acquired absence of both cervix and uterus; Z86.718 Personal history of other venous thrombosis and embolism; Z88.5 Allergy status to narcotic agent; Z83.6 Family history of other diseases of the respiratory system